=== PATIENT | male | born 1965 | race African-American/Black ===

== ENCOUNTER 2019-10-02 16:32 | Emergency (ER) | payer BC ==
[2019-10-02 17:09] VITALS: BP 117/83
--- NOTE | 2019-10-02 18:55 | UC ---
Throat Pain/Nasal Jonny HPI - HPI Summary HPI Summary: Patient is a 53-year-old male presenting with severe sinus congestion, pressure behind his eyes, headache 2 days. Also notes bilateral ear pressure. Denies cough. Notes chills and fatigue. Denies fever. Denies n/v/d. Denies history of asthma or allergies. - History of Current Complaint Chief Complaint: UCGeneralIllness Stated Complaint: SINUS ISSUES Hx Obtained From: Patient Onset/Duration: Sudden Onset, Lasting Days Severity: Severe Pain Intensity: 8 Pain Scale Used: 0-10 Numeric - Allergies/Home Medications Allergies/Adverse Reactions: Allergies Allergy/AdvReac Type Severity Reaction Status Date / Time bee venom protein (honey bee) Allergy Hives/Diff. Verified 10/02/19 17:10 Breathing/I tching PMH/Surg Hx/FS Hx/Imm Hx Previously Healthy: Yes - Surgical History Surgical History: Yes Surgery Procedure, Year, and Place: Right KNEE - Family History Known Family History: Positive: None, Non-Contributory - Social History Occupation: Employed Full-time Alcohol Use: Occasionally Substance Use Type: None Smoking Status (MU): Former Smoker Type: Cigars Amount Used/How Often: 1 cigar daily - Immunization History Most Recent Influenza Vaccination: Not UTD Review of Systems All Other Systems Reviewed And Are Negative: Yes Constitutional: Positive: Chills, Fatigue. Negative: Fever Eyes: Positive: Negative ENT: Positive: Ear Ache - b/l pressure, Sinus Congestion, Sinus Pain/ Tenderness. Negative: Sore Throat, Nasal Discharge Respiratory: Positive: Negative. Negative: Shortness Of Breath, Cough Cardiovascular: Positive: Negative Gastrointestinal: Positive: Negative Musculoskeletal: Positive: Negative Physical Exam Triage Information Reviewed: Yes Appearance: Well-Appearing, No Pain Distress, Well-Nourished Vital Signs: Initial Vital Signs Temp 98.1 F 10/02/19 17:05 Pulse 78 10/02/19 17:05 Resp 16 10/02/19 17:05 BP 117/83 10/02/19 17:05 Pulse Ox 99 10/02/19 17:05 Vital Signs Reviewed: Yes Eyes: Positive: Conjunctiva Clear ENT: Positive: Hearing grossly normal, Pharynx normal, Nasal congestion, TMs normal, Sinus tenderness - maxillary, Uvula midline. Negative: Pharyngeal erythema, Nasal drainage, Tonsillar swelling, Tonsillar exudate Neck exam: Normal Neck: Positive: Supple, Nontender, No Lymphadenopathy Respiratory Exam: Normal Respiratory: Positive: Lungs clear, Normal breath sounds, No respiratory distress Cardiovascular Exam: Normal Cardiovascular: Positive: RRR Neurological: Positive: Alert Psychological: Positive: Age Appropriate Behavior Skin Exam: Normal Throat Pain/Nasal Course/Dx - Course Course Of Treatment: Discussed likely viral etiology of cold symptoms and to continue the symptomatic treatment. I prescribed Mucinex D and Flonase to help relieve congestion. Instructed to get plenty of rest and increase fluid intake. Instructed to follow-up with [facility] if symptoms do not resolve within 7 days. Patient voiced understanding and agreed with the treatment plan. - Differential Dx/Diagnosis Provider Diagnosis: Nasal congestion Discharge ED - Sign-Out/Discharge Documenting (check all that apply): Patient Departure All imaging exams completed and their final reports reviewed: No Studies - Discharge Plan Condition: Stable Disposition: HOME Prescriptions: Fluticasone NASAL SPRAY 50MCG* [Flonase NASAL SPRAY 50MCG*] 2 spray BOTH NARES DAILY PRN #1 btl PRN Reason: Congestion Guaifenesin/Pseudoephedrne HCl [Mucinex D ER 1,200-120 mg Tab] 1 each PO BID PRN #14 tab.er.12h PRN Reason: Congestion Patient Education Materials: Cold Symptoms (ED) Forms: *Work Release Referrals: [facility] [Outside] - If Needed Additional Instructions: As discussed, your symptoms are most likely caused by a virus. Take mucinex as prescribed for the treatment of your nasal congestion. You may also use Flonase spray as prescribed for symptomatic relief. You may take ibuprofen as directed for pain relief. Get plenty of rest and increase your fluid intake. Follow up with the [facility] if your symptoms worsen or do not resolve within 7 days. - Billing Disposition and Condition Condition: STABLE Disposition: Home
== END 2019-10-02 19:06 | disposition home or self-care (01) ==
LOC: UCEAST 16:32
DX: R09.81 Nasal congestion (principal); R51 Headache; R53.83 Other fatigue; H92.03 Otalgia, bilateral; R68.83 Chills (without fever); Z91.030 Bee allergy status; Z87.891 Personal history of nicotine dependence
CPT/HCPCS: 99212; G0463